=== PATIENT | male | born 1950 | race Caucasian/White ===

== ENCOUNTER 2016-12-09 07:49 | Day surgery (SDC) | payer BC ==
[2016-12-07 14:36] VITALS: BMI 26.9
[2016-12-09] MEDS ORDERED: LIDOCAINE HCL/PF 2% SDV 5ML VIAL ONE (07:59)
[2016-12-09] MEDS ORDERED: PROPOFOL 20 ML ONE ×3 (07:59)
[2016-12-09 08:18] VITALS: TEMP 97.9
[2016-12-09 10:59] VITALS: BP 132/72; PULSE 62
--- NOTE | 2016-12-10 15:15 | PATH ---
Surgical Pathology Report Patient Name: SONIA ELAINE [facility], [place]. Rec. #: [id number] /Age/Gender: 1950 (Age: 65) / M Account: [id number] Location: [facility]-ENDOSCOPY Taken: 12/09/2016 Received: 12/09/2016 Reported: 12/10/2016 Physicians: Dylna Palacios M.D. Specimen(s) Received A: BX DUODENUM B: BX ANTRUM C: BX PROXIMAL RIGHT COLON Clinical History GERD, rule out colon cancer Rule out celiac disease, gastritis, dysphagia, colonic polyp Final Diagnosis ----- A. 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 B. ANTRUM, BIOPSY: MILD CHRONIC GASTRITIS. IMMUNOSTAIN IS NEGATIVE FOR H. PYLORI ORGANISMS. C. PROXIMAL RIGHT COLON, BIOPSY: TUBULAR ADENOMA. ___ Electronically Signed Michelle Gómez M.D. Gross Description A. Received in formalin, labeled "duodenum" are 3 fong, irregular portions of soft tissue ranging from 0.2-0.4 cm. in greatest dimension. The specimens are submitted in toto in one cassette. B. Received in formalin, labeled "antrum" are 2 fong, irregular portions of soft tissue measuring 0.3 and 0.5 cm. in greatest dimension. The specimens are submitted in toto in one cassette. C. Received in formalin, labeled "proximal right colon" is a fong, irregular portion of soft tissue measuring 0.4 cm. in greatest dimension. The specimen is submitted in toto in one cassette. 12/09/2016 saudi12/09/2016
== END 2016-12-09 10:55 | disposition home or self-care (01) ==
LOC: FASU-ENDO 07:49
PROVIDERS: ATTEND Internal Medicine Gastroenterology
PROC: 0D758ZZ Dilation of Esophagus, Via Natural or Artificial Opening Endoscopic (ICD-10-PCS; 2016-12-09)
PROC: 0DJD8ZZ Inspection of Lower Intestinal Tract, Via Natural or Artificial Opening Endoscopic (ICD-10-PCS; 2016-12-09)
PROC: 0DB98ZX Excision of Duodenum, Via Natural or Artificial Opening Endoscopic, Diagnostic (ICD-10-PCS; principal; 2016-12-09 09:47)
PROC: 0DB68ZX Excision of Stomach, Via Natural or Artificial Opening Endoscopic, Diagnostic (ICD-10-PCS; 2016-12-09 09:47)
PROC: 0D728ZZ Dilation of Middle Esophagus, Via Natural or Artificial Opening Endoscopic (ICD-10-PCS; 2016-12-09 09:47)
DX: Z12.11 Encounter for screening for malignant neoplasm of colon (principal); K29.50 Unspecified chronic gastritis without bleeding; K29.80 Duodenitis without bleeding; D12.2 Benign neoplasm of ascending colon; R13.10 Dysphagia, unspecified
CPT/HCPCS: 43239; 43249; G0105; 88305-TC; 88342-TC

== ENCOUNTER 2018-05-06 12:19 | Emergency (ER) | payer OTHER, BC ==
[2018-05-06 12:54] VITALS: BP 122/68; PULSE 65; TEMP 98.1; BMI 27.4
--- NOTE | 2018-05-06 15:08 | PDOC ---
History of Present Illness - General Chief Complaint: Pain Stated Complaint: TAILBONE PAIN FROM FALL Time Seen by Provider: 05/06/18 14:58 History Source: Patient Exam Limitations: No Limitations - History of Present Illness Initial Comments: 05/06/18 15:02 Patient states 4 days ago slipped and fell on stairs and fell down remaining 6 or 7 stairs on his bottom. States has been unable to sit easily and has pain to his coccyx. No other injury Occurred: reports: last week Severity: reports: moderate, severe Pain Location: reports: pelvis Method of Injury: Yes: direct blow Loss of Consciousness: no loss of consciousness Associated Symptoms (Fall): denies symptoms Past History - Travel Traveled outside of the country in the last 30 days: No Close contact w/someone who was outside of country & ill: No - Past Medical History Allergies/Adverse Reactions: Allergies Allergy/AdvReac Type Severity Reaction Status Date / Time No Known Allergies Allergy Verified 12/07/16 14:30 Home Medications: Ambulatory Orders Docusate Sodium [Colace -] 100 mg PO DAILY #30 capsule 05/06/18 Oxycodone HCl/Acetaminophen [Percocet 5-325 mg Tablet -] 1 - 2 tab PO Q4H PRN # 10 tablet MDD 4 05/06/18 Anemia: No Asthma: No Cancer: No Cardiac Disorders: No CVA: No COPD: No CHF: No Dementia: No Diabetes: No GI Disorders: No Disorders: No HTN: No Hypercholesterolemia: Yes (NOT ON MEDS) Liver Disease: No Seizures: No Thyroid Disease: No - Surgical History Abdominal Surgery: No Appendectomy: Yes Cardiac Surgery: No Cholecystectomy: No Lung Surgery: No Neurologic Surgery: Yes (C4C5 FUSION) Orthopedic Surgery: Yes (ANISHA KNEE REPLACEMENT) - Suicide/Smoking/Psychosocial Hx Smoking Status: No Smoking History: Never smoked Have you smoked in the past 12 months: No Number of Cigarettes Smoked Daily: 0 If you are a former smoker, when did you quit?: 13 YEARS AGO Hx Alcohol Use: Yes (OCCASIONALLY) Drug/Substance Use Hx: No Substance Use Type: None Hx Substance Use Treatment: No Review of Systems - Review of Systems Able to Perform ROS?: Yes Is the patient limited Omani proficient: Yes Constitutional: Yes: See HPI. No: Symptoms Reported, Malaise HEENTM: No: Symptoms Reported Respiratory: No: Symptoms reported Musculoskeletal: Yes: Symptoms Reported, See HPI, Back Pain Integumentary: Yes: Symptoms Reported, See HPI, Bruising Neurological: Yes: See HPI. No: Symptoms reported All Other Systems: Reviewed and Negative *Physical Exam - Vital Signs Last Vital Signs Temp Pulse Resp BP Pulse Ox 98.1 F 65 18 122/68 99 05/06/18 12:51 05/06/18 12:51 05/06/18 12:51 05/06/18 12:51 05/06/18 12:51 - Physical Exam General Appearance: Yes: Nourished, Appropriately Dressed, Apparent Distress, Mild Distress HEENT: positive: [place], Normal ENT Inspection, TMs Normal, Pharynx Normal Gastrointestinal/Abdominal: positive: Soft. negative: Normal Bowel Sounds, Tender Musculoskeletal: positive: Normal Inspection, Vertebral Tenderness Extremity: positive: Normal Inspection, Normal Range of Motion, Tender, Swelling Integumentary: positive: Ecchymosis, Bruising (to midpoint gluteal folds with mild crepitus, CONSISTENT with coccyx fracture) Neurologic: positive: autocad detailer II-XII NML intact, Fully Oriented, Alert, Normal Mood/ Affect, Normal Response, Motor Strength 5/5 Moderate Sedation - Procedure Monitoring Vital Signs: Procedure Monitoring Vital Signs Temperature 98.1 F 05/06/18 12:51 Pulse Rate 65 05/06/18 12:51 Respiratory Rate 18 05/06/18 12:51 Blood Pressure 122/68 05/06/18 12:51 O2 Sat by Pulse Oximetry (%) 99 05/06/18 12:51 Progress Note - Progress Note Progress Note: Coccyx fracture, will treat with Percocet and Colace. Patient understands and agrees with no x-ray as diagnosis of fracture *DC/Admit/Observation/Transfer Diagnosis at time of Disposition: Fracture of coccyx Qualifiers: Encounter type: initial encounter Fracture type: closed Qualified Code(s): S32.2XXA - Fracture of coccyx, initial encounter for closed fracture - Discharge Dispostion Disposition: HOME Condition at time of disposition: Stable Decision to Admit order: No - Prescriptions Prescriptions: Docusate Sodium [Colace -] 100 mg PO DAILY #30 capsule Oxycodone HCl/Acetaminophen [Percocet 5-325 mg Tablet -] 1 - 2 tab PO Q4H PRN # 10 tablet MDD 4 PRN Reason: Pain - Referrals Referrals: Farzaneh Morgan MD [Primary Care Provider] - - Patient Instructions Printed Discharge Instructions: DI for Coccyx Fracture Additional Instructions: Rest, ice to area on and off for 15 minutes 4-6 times a day Avoid heavy lifting or exercise until pain and swelling is resolved or until further directed Use inflatable pillow for sitting Followup with orthopedist in one to 2 days if not improving, if significantly improved may wait one week for followup with orthopedist Colace 100 mg tablet 8 hours as needed to keep stools soft Lots of fluids/water, teas May use ibuprofen every 6 hours as needed for pain May use Percocet one or 2 tablets as needed for severe pain, remembering will make dizzy and sleepy - Post Discharge Activity
== END 2018-05-06 15:17 | disposition home or self-care (01) ==
LOC: JERFT 12:19
DX: S32.2XXA Fracture of coccyx, initial encounter for closed fracture (principal); W10.9XXA Fall (on) (from) unspecified stairs and steps, initial encounter; Y93.89 Activity, other specified; Y92.89 Other specified places as the place of occurrence of the external cause; Z87.891 Personal history of nicotine dependence
CPT/HCPCS: 99281-25

== ENCOUNTER 2023-11-29 07:54 | Day surgery (SDC) | payer OTHER, BC ==
[2023-11-26 09:21] VITALS: BMI 27.8
[2023-11-29 09:56] VITALS: RESP 18; TEMP 97.2
[2023-11-29 10:10] VITALS: BP 134/80; PULSE 64
== END 2023-11-29 10:23 | disposition home or self-care (01) ==
LOC: FASU-ENDO 07:54
PROVIDERS: ATTEND Internal Medicine Gastroenterology
PROC: 0DBN8ZX Excision of Sigmoid Colon, Via Natural or Artificial Opening Endoscopic, Diagnostic (ICD-10-PCS; 2023-11-29)
PROC: 0D5H8ZZ Destruction of Cecum, Via Natural or Artificial Opening Endoscopic (ICD-10-PCS; 2023-11-29)
PROC: 0DBP8ZX Excision of Rectum, Via Natural or Artificial Opening Endoscopic, Diagnostic (ICD-10-PCS; principal; 2023-11-29 09:16)
DX: Z12.11 Encounter for screening for malignant neoplasm of colon (principal); K55.20 Angiodysplasia of colon without hemorrhage; D12.5 Benign neoplasm of sigmoid colon; D12.8 Benign neoplasm of rectum; K57.30 Diverticulosis of large intestine without perforation or abscess without bleeding
CPT/HCPCS: 88305-TC